=== PATIENT | male | born 1945 ===

== ENCOUNTER 2018-10-25 19:15 | Inpatient (IN) | payer MEDICARE ==
--- NOTE | 2018-10-25 19:18 | C.PDOC ---
History Of Present Illness Patient presents to the ER complaining of chest pain for the past couple of days. Patient is scheduled for angio to be done tomorrow at [place] but reports more chest pain this morning. He took three sublingual nitro with decreased of discomfort but it still persisted, he took another three sublingual nitro RADIATION THERAPIST and called 911. Patient received 324 aspirin enroute by medics. He has a Hx of two PR with four stents and pacemaker. Denies fever, chills, nausea, or vomiting. Time Seen by Provider: 10/25/18 19:17 History Per: Patient History/Exam Limitations: no limitations Onset/Duration Of Symptoms: Days, Worse Since (This morning) Current Symptoms Are (Timing): Still Present Context: Other Severity: Moderate Pain Scale Rating Of: 4 Quality: Dull, Tightness, Pressure Associated Symptoms: denies: Nausea, Dyspnea Modifying Factors: None Exacerbating Factors: None Alleviating Factors: None Nitro Therapy Administered: 3 (x2), Per Own Supply, Partial Relief Recent travel outside of the [place]: No Additional History Per: Patient Past Medical History Reviewed: Historical Data, Nursing Documentation, Vital Signs - Medical History Other PMH: MIx2 Surgical History: Coronary Stent (x4), Pacemaker Family History: States: No Known Family Hx Review Of Systems Constitutional: Negative for: Fever, Chills ENT: Negative for: Nose Discharge, Nose Congestion Cardiovascular: Positive for: Chest Pain. Negative for: Palpitations Respiratory: Negative for: Cough, Shortness of Breath Gastrointestinal: Negative for: Nausea, Vomiting Genitourinary: Negative for: Dysuria, Hematuria Musculoskeletal: Negative for: Back Pain Skin: Negative for: Rash Neurological: Positive for: Weakness (Chronic right arm). Negative for: Numbness Physical Exam - Physical Exam Appears: Non-toxic Skin: Warm, Dry Head: Normacephalic Eye(s): bilateral: Normal Inspection Oral Mucosa: Moist Neck: Trachea Midline, Supple Chest: Symmetrical, No Tenderness, Other (Pacemaker on right) Cardiovascular: Rhythm Regular Respiratory: No Rales, No Rhonchi, No Wheezing Gastrointestinal/Abdominal: Soft, No Tenderness Back: No CVA Tenderness Extremity: No Tenderness Extremity: Bilateral: Atraumatic, Normal Color And Temperature, Normal ROM Pulses: Left Dorsalis Pedis: Normal, Right Dorsalis Pedis: Normal Neurological/Psych: Oriented x3, Other (Chronic weakness on right arm) Gait: Unable To Assess ED Course And Treatment - Laboratory Results Result Diagrams: 10/25/18 19:41 10/25/18 19:41 ECG: Interpreted By Me, Viewed By Me ECG Rhythm: Sinus Rhythm (110), R BBB, Nonspecific Changes Pulse Ox Interpretation: Normal - Radiology CXR: Interpreted by Me, Viewed By Me CXR Interpretation: Yes: Infiltrates (? rll), Other (pacer right, mild vasc congestion, prosthetic shoulder). No: Fracture, Cardiomegaly Progress Note: EKG, blood work, CXR, and urinalysis ordered. Disposition Discussed With Dr.: Derrick Reynolds Comment: accepted the pt on h er service and took over the care at 8:47 PM Doctor Will See Patient In The: Hospital Counseled Patient/Family Regarding: Studies Performed, Diagnosis - Disposition Disposition: HOSPITALIZED Disposition Time: 19:18 Condition: FAIR - POA Present On Arrival: None - Clinical Impression Clinical Impression: Chest pain - Scribe Statement The provider has reviewed the documentation as recorded by the Scriblaila Carlin All medical record entries made by the Scribe were at my direction and personally dictated by me. I have reviewed the chart and agree that the record accurately reflects my personal performance of the history, physical exam, medical decision making, and the department course for this patient. I have also personally directed, reviewed, and agree with the discharge instructions and disposition. Decision To Admit - Pt Status Changed To: Hospital Disposition Of: Observation - . Bed Request Type: Telemetry Admitting Physician: Derrick Reynolds Patient Diagnosis: Chest pain
[2018-10-25 19:47] LABS: BASO # 0.1 K/uL (0.0-0.2); BASO % 0.7 % (0.0-2.0); EOS # 0.2 K/uL (0.0-0.7); EOS % 1.9 % (0.0-4.0); HEMOGLOBIN 12.8 g/dL (12.0-18.0); LYMPH # 2.4 K/uL (1.0-4.3); MEAN CELL VOLUME 69.1 fL (80.0-94.0); MEAN CORPUSCULAR HEMOGLOBIN 22.3 pg (27.0-31.0); MEAN CORPUSCULAR HGB CONC 32.3 g/dL (33.0-37.0); MEAN PLATELET VOLUME 7.9 fL (7.2-11.7); MONO # 0.9 K/uL (0.0-0.8); MONO % 7.5 % (0.0-10.0); NEUT # 8.5 K/uL (1.8-7.0); NEUT % 69.9 % (50.0-75.0); NRBC % 0.1 % (0.0-2.0); RBC 5.75 Mil/uL (4.40-5.90); WHITE BLOOD COUNT 12.1 K/uL (4.8-10.8)
[2018-10-25 19:54] LABS: INR 1.2; PROTHROMBIN TIME 12.8 SECONDS (9.7-12.2)
[2018-10-25 20:01] LABS: ALB/GLOB RATIO 1.4 (1.0-2.1); ALBUMIN 4.3 g/dL (3.5-5.0); ALT/SGPT 24 U/L (21-72); AST/SGOT 30 U/L (17-59); BLOOD UREA NITROGEN 19 mg/dL (9-20); CALCIUM 9.4 mg/dl (8.6-10.4); GFR NON-AFRICAN AMERICAN > 60; LIPASE 123 U/L (23-300)
[2018-10-25 20:12] LABS: B-TYPE NATRIURETIC PEPTIDE 93.7 pg/mL (0-900)
[2018-10-25] MEDS ORDERED: Heparin25000 units/250ml 1/2NS 25,000 UNITS/250 ML BAG IV ONE ×2 (21:30→21:57)
[2018-10-25] MEDS ORDERED: Nitroglycerin 50mg in D5W 50 MG/250 ML BOTTLE IV ONE (21:31)
[2018-10-25] MEDS: Sodium Chloride 0.9% 1,000 ML IV SCH (22:26)
--- NOTE | 2018-10-25 22:32 | CP.PCM.CON ---
History of Present Illness - History of Present Illness History of Present Illness: 72 y/o male with pmx of cad, previously worked up multiple for CAD, patient prensents to [facility] (formerly [facility]) with chest pain, worsen by exerction. denies any radiation, denies any dizziness Patient had multiple previous outpatient wrok up for chest pain, including echoad, cardiac cateh at [facility] Pmx: CAD, allergies Psurg hx: deneis CHL smokes cigaretts 0.5 PPD Review of Systems - Review of Systems All systems: reviewed and no additional remarkable complaints except - Constitutional Constitutional: As Per HPI Past Patient History - Tetanus Immunizations Tetanus Immunization: Unknown - Past Social History Smoking Status: Current Some Days Smoker - CARDIAC Hx Pacemaker: Yes - PULMONARY Hx Respiratory Disorders: No - NEUROLOGICAL Hx Neurological Disorder: No - PSYCHIATRIC Hx Substance Use: No - SURGICAL HISTORY Hx Coronary Stent: Yes (x4) - ANESTHESIA Hx Anesthesia: Yes Hx Anesthesia Reactions: No Hx Malignant Hyperthermia: No Meds Allergies/Adverse Reactions: Allergies Allergy/AdvReac Type Severity Reaction Status Date / Time cat dander Allergy SHORTNESS Verified 10/25/18 19:30 OF BREATH nuts Allergy SHORTNESS Uncoded 10/25/18 19:30 OF BREATH seeds Allergy SHORTNESS Uncoded 10/25/18 19:30 OF BREATH - Medications Medications: Current Medications Acetylcysteine (Acetylcysteine 20%) 6 ml PO Q12H [facility] Stop: 10/27/18 10:31 Famotidine (Pepcid) 20 mg IVP DAILY [facility] Heparin Sodium/Sodium Chloride (Heparin 23496 Units/250ml 1/2 Normal Saline) 25,000 units in 250 mls @ 10 mls/hr IV .Q24H [facility] Stop: 10/26/18 21:29 Last Admin: 10/25/18 21:57 Dose: 10 mls/hr Sodium Chloride (Sodium Chloride 0.9%) 1,000 mls @ 75 mls/hr IV .[id number] [facility] Last Admin: 10/25/18 22:26 Dose: 75 mls/hr Potassium Chloride (Potassium Chloride 10 Meq/100 Ml) 10 meq in 100 mls @ 100 mls/hr IVPB Q1H [facility] Stop: 10/26/18 01:29 Rosuvastatin Calcium (Crestor) 20 mg PO HS [facility] Last Admin: 10/25/18 21:09 Dose: 20 mg Physical Exam - Head Exam Head Exam: ATRAUMATIC, NORMAL INSPECTION, NORMOCEPHALIC - Eye Exam Eye Exam: Normal appearance Pupil Exam: PERRL - ENT Exam ENT Exam: Mucous Membranes Dry, Mucous Membranes Moist, Normal Oropharynx - Neck Exam Neck exam: Positive for: Lymphadenopathy, Normal Inspection - Respiratory Exam Respiratory Exam: NORMAL BREATHING PATTERN. absent: Accessory Muscle Use, Chest Wall Tenderness, Clear to Auscultation Bilateral - GI/Abdominal Exam GI & Abdominal Exam: Normal Bowel Sounds, Soft - Expanded Upper Extremities Exam Right Forearm Wrist exam: tenderness - Back Exam Back exam: NORMAL INSPECTION Results - Vital Signs Recent Vital Signs: Last Vital Signs Temp 98 F 10/25/18 20:20 Pulse 94 H 10/25/18 21:55 Resp 19 10/25/18 21:55 BP 96/68 L 10/25/18 21:55 Pulse Ox 100 10/25/18 21:55 - Labs Result Diagrams: 10/26/18 05:00 10/26/18 05:00 Labs: Laboratory Results - last 24 hr 10/25/18 10/25/18 10/25/18 19:41 19:41 19:41 WBC 12.1 H RBC 5.75 Hgb 12.8 Hct 39.8 MCV 69.1 L MCH 22.3 L MCHC 32.3 L RDW 16.0 H Plt Count 396 MPV 7.9 Neut % (Auto) 69.9 Lymph % (Auto) 20.0 [place] % (Auto) 7.5 Eos % (Auto) 1.9 Baso % (Auto) 0.7 Neut # (Auto) 8.5 H Lymph # (Auto) 2.4 [place] # (Auto) 0.9 H Eos # (Auto) 0.2 Baso # (Auto) 0.1 PT 12.8 H INR 1.2 APTT 35.0 H Sodium 143 Potassium 3.5 L Chloride 103 Carbon Dioxide 25 Anion Gap 17 BUN 19 Creatinine 1.0 Est GFR ( Amer) > 60 Est GFR (Non-Af Amer) > 60 Random Glucose 120 H Calcium 9.4 Total Bilirubin 0.9 AST 30 ALT 24 Alkaline Phosphatase 73 Troponin I < 0.0120 NT-Pro-B Natriuret Pep 93.7 Total Protein 7.5 Albumin 4.3 Globulin 3.2 Albumin/Globulin Ratio 1.4 Lipase 123 Assessment & Plan - Assessment and Plan (Free Text) Assessment: r/p ACS: Start DAPT, + IV heparin, cehck p2y12 levels -keep NPO except medso -oral mucomyst -cardiologyu eval for cath in AM Patient remains hemodynamially stable -please see order set for more derails -possible drug seeking: check serum and urine send out drug test -Dr. Jarrell consulted for cards - Date & Time Date: 10/26/18 Time: 12:00
[2018-10-26] MEDS: Acetylcysteine 20% Inhal Soln (4ml) PO SCH ×3 (00:14→21:33)
[2018-10-26] MEDS ORDERED: Sodium Chloride 0.9% 1,000 ML IV ONE (02:32)
[2018-10-26 05:03] LABS: BASO # 0.1 K/uL (0.0-0.2); BASO % 0.7 % (0.0-2.0); EOS # 0.3 K/uL (0.0-0.7); EOS % 3.6 % (0.0-4.0); HEMOGLOBIN 11.2 g/dL (12.0-18.0); LYMPH # 2.2 K/uL (1.0-4.3); LYMPH % 27.7 % (20.0-40.0); MEAN CELL VOLUME 69.9 fL (80.0-94.0); MEAN CORPUSCULAR HEMOGLOBIN 22.4 pg (27.0-31.0); MEAN CORPUSCULAR HGB CONC 32.1 g/dL (33.0-37.0); MEAN PLATELET VOLUME 7.8 fL (7.2-11.7); MONO # 0.7 K/uL (0.0-0.8); MONO % 8.8 % (0.0-10.0); NEUT # 4.6 K/uL (1.8-7.0); NEUT % 59.2 % (50.0-75.0); RED CELL DISTRIBUTION WIDTH 15.8 % (11.5-14.5); WHITE BLOOD COUNT 7.8 K/uL (4.8-10.8)
[2018-10-26 05:38] LABS: ALB/GLOB RATIO 1.4 (1.0-2.1); ALBUMIN 3.3 g/dL (3.5-5.0); ALT/SGPT 28 U/L (21-72); AST/SGOT 30 U/L (17-59); BLOOD UREA NITROGEN 21 mg/dL (9-20); CALCIUM 8.3 mg/dl (8.6-10.4); GFR NON-AFRICAN AMERICAN > 60
[2018-10-26 07:26] LABS: URINE BILIRUBIN NEGATIVE (NEGATIVE); URINE BLOOD NEGATIVE (NEGATIVE); URINE CLARITY Clear (Clear); URINE COLOR Amber (YELLOW); URINE GLUCOSE (UA) NORMAL (Normal); URINE LEUKOCYTE ESTERASE TRACE Leu/uL (Negative); URINE PROTEIN NEGATIVE (NEGATIVE)
[2018-10-26] MEDS ORDERED: Iodixanol 320 MG/ML 100 ML BOTTLE IV ONE (10:31)
[2018-10-26] MEDS ORDERED: Lidocaine 2% MPF (5 ml) Inj ONE (10:31)
[2018-10-26] MEDS ORDERED: Midazolam 2 MG/2 ML VIAL ONE (10:41)
--- NOTE | 2018-10-26 10:47 | CP.PCM.PN ---
Subjective - Date & Time of Evaluation Date of Evaluation: 10/26/18 Time of Evaluation: 10:46 - Subjective Subjective: H&P dictated #[id number] Objective - Vital Signs/Intake and Output Vital Signs (last 24 hours): Temp Pulse Resp BP Pulse Ox 97.8 F 70 19 110/71 97 10/26/18 08:00 10/26/18 07:00 10/26/18 07:00 10/26/18 07:00 10/26/18 07:00 Intake and Output: 10/26/18 10/26/18 06:59 18:59 Intake Total 1970 320 Output Total 450 575 Balance 1520 -255 - Medications Medications: Current Medications Acetylcysteine (Acetylcysteine 20%) 6 ml PO Q12H [facility] Stop: 10/27/18 10:31 Last Admin: 10/26/18 09:33 Dose: 6 ml Aspirin (Aspirin Chewable) 81 mg PO DAILY [facility] Last Admin: 10/26/18 09:11 Dose: 81 mg Famotidine (Pepcid) 20 mg IVP DAILY [facility] Last Admin: 10/26/18 09:11 Dose: 20 mg Heparin Sodium/Sodium Chloride (Heparin 86674 Units/250ml 1/2 Normal Saline) 25,000 units in 250 mls @ 10 mls/hr IV .Q24H [facility] Stop: 10/26/18 21:29 Last Admin: 10/25/18 21:57 Dose: 10 mls/hr Sodium Chloride (Sodium Chloride 0.9%) 1,000 mls @ 75 mls/hr IV .[id number] [facility] Last Admin: 10/25/18 22:26 Dose: 75 mls/hr Morphine Sulfate (Morphine) 2 mg IVP Q6H PRN PRN Reason: Pain, severe (8-10) Last Admin: 10/25/18 23:44 Dose: 2 mg Rosuvastatin Calcium (Crestor) 20 mg PO HS [facility] Last Admin: 10/25/18 21:09 Dose: 20 mg Ticagrelor (Brilinta) 90 mg PO BID [facility] Last Admin: 10/26/18 09:11 Dose: 90 mg - Labs Labs: 10/26/18 05:00 10/26/18 05:00 PT 12.8 SECONDS (9.7-12.2) H 10/25/18 19:41 INR 1.2 10/25/18 19:41 APTT 73.0 SECONDS (21-34) H D 10/26/18 05:00
[2018-10-26] MEDS ORDERED: Iodixanol 320 MG/ML 200 ML BOTTLE IV ONE (10:49)
--- NOTE | 2018-10-26 11:05 | RAD ---
Date of service: 10/25/2018 PROCEDURE: CHEST RADIOGRAPH, 1 VIEW HISTORY: Chest pain COMPARISON: None available. FINDINGS: LUNGS: The lungs are well inflated and clear. PLEURA: No pneumothorax or pleural effusion. CARDIOVASCULAR: The heart is normal in size. There is a right-sided dual lead permanent pacing device. No aortic atherosclerotic calcifications present. OSSEOUS STRUCTURES: Within normal limits for the patient's age. VISUALIZED UPPER ABDOMEN: Normal. OTHER FINDINGS: None. IMPRESSION: No active pulmonary disease.
[2018-10-26] MEDS ORDERED: Sodium Chloride 0.45% 1,000 ML IV SCH (12:00)
[2018-10-26] MEDS: Sodium Chloride 0.9% 1,000 ML IV SCH ×2 (12:05→22:44)
--- NOTE | 2018-10-27 00:12 | CP.PCM.PN ---
Subjective - Date & Time of Evaluation Date of Evaluation: 10/26/18 Time of Evaluation: 18:30 - Subjective Subjective: Patient s/p Cardiac Cath: 1. Non Obstructive Coronaries 2. EF 50% 3. Dilated Ascending Aorta Check CTA chest r/o Aortic aneurysm Objective - Vital Signs/Intake and Output Vital Signs (last 24 hours): Temp Pulse Resp BP Pulse Ox 98.6 F 83 21 105/57 L 95 10/27/18 00:00 10/27/18 00:00 10/27/18 00:00 10/26/18 23:54 10/27/18 00:00 Intake and Output: 10/26/18 10/27/18 18:59 06:59 Intake Total 1470 400 Output Total 1375 600 Balance 95 -200 - Medications Medications: Current Medications Acetylcysteine (Acetylcysteine 20%) 6 ml PO Q12H [facility] Stop: 10/27/18 10:31 Last Admin: 10/26/18 21:33 Dose: 6 ml Aspirin (Aspirin Chewable) 81 mg PO DAILY [facility] Last Admin: 10/26/18 09:11 Dose: 81 mg Clopidogrel Bisulfate (Plavix) 75 mg PO DAILY [facility] Famotidine (Pepcid) 20 mg IVP DAILY [facility] Last Admin: 10/26/18 09:11 Dose: 20 mg Heparin Sodium (Porcine) (Heparin) 5,000 units SC Q8 [facility] Last Admin: 10/26/18 21:09 Dose: 5,000 units Sodium Chloride (Sodium Chloride 0.45%) 1,000 mls @ 50 mls/hr IV .Q20H [facility] Stop: 10/27/18 07:59 Last Admin: 10/26/18 12:07 Dose: 50 mls/hr Morphine Sulfate (Morphine) 2 mg IVP Q6H PRN PRN Reason: Pain, severe (8-10) Last Admin: 10/25/18 23:44 Dose: 2 mg Rosuvastatin Calcium (Crestor) 20 mg PO HS [facility] Last Admin: 10/26/18 21:09 Dose: 20 mg - Labs Labs: 10/26/18 05:00 10/26/18 05:00 PT 12.8 SECONDS (9.7-12.2) H 10/25/18 19:41 INR 1.2 10/25/18 19:41 APTT 73.0 SECONDS (21-34) H D 10/26/18 05:00
--- NOTE | 2018-10-27 02:28 | HP ---
CHIEF COMPLAINT: Worsening chest pain over the past two days, scheduled for angio at [facility] by her primary senior accounting clerk. HISTORY OF PRESENT ILLNESS: Mr. Zamora is a 72-year-old male with past medical history of coronary artery disease, status post four stents placement in [place], permanent pacemaker placement, diabetes mellitus, hypertension, hyperlipidemia, chronic pancreatitis who has been following up with as a primary care physician and senior accounting clerk, came into the emergency room. He came into [facility] yesterday for worsening chest pain. He claims chest pain was more on exertion, took three sublingual nitroglycerins day before yesterday with relief, and again he noticed to have similar type of chest pain, and he took sublingual nitroglycerin again which he got relief and then he called 911. When I examined, he denies any headache or dizziness. Denied any chest pain, shortness of breath, or wheezing. Denies any nausea, vomiting, abdominal pain, diarrhea, or constipation. Denies any other urinary complaints. All other systems reviewed and were found to be negative. PAST MEDICAL HISTORY: As described hypertension, hyperlipidemia, coronary artery disease, status post stent placement and permanent pacemaker placement, chronic pancreatitis. PAST SURGICAL HISTORY: Underwent permanent pacemaker placement and stent placement in right shoulder surgery. FAMILY HISTORY: Coronary artery disease. PERSONAL HISTORY: He is . Having one son. 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 Lives alone. SOCIAL HISTORY: He smokes two to three cigarettes per day. Denies any drug abuse. Denies any alcohol use. ALLERGIES: HE IS ALLERGIC TO CAT DANDER. HOME MEDICATIONS: Include isosorbide 30 mg daily, metoprolol 25 mg p.o. b.i.d., testosterone 200 mg injection weekly, Lipitor 40 mg p.o. at bedtime, nitroglycerin 0.4 mg as needed, Plavix 75 mg daily, amlodipine 5 mg p.o. at bedtime, ranolazine 500 mg p.o. b.i.d., Xanax 0.5 mg p.o. b.i.d. REVIEW OF SYSTEMS: As described in history of present illness. All other systems reviewed and were found to be negative. PHYSICAL EXAMINATION: GENERAL: Elderly male, lying in bed, in no acute distress. VITAL SIGNS: Blood pressure 107/72, pulse 85, respirations 19, temperature 98.4 degrees Fahrenheit, O2 sat is 97% on room air. HEENT: Pupils are equal, round, and reactive to light and accommodation. Extraocular muscles are intact. No icterus. No pallor. No oral thrush. No pharyngeal congestion. NECK: Supple. No JVD. LUNGS: Bilateral vesicular breath sounds. No wheezing. No rhonchi. CARDIOVASCULAR SYSTEM: S1 and S2 present, regular. ABDOMEN: Soft and nontender. Bowel sounds present. No guarding. No rigidity. No rebound tenderness noted. CENTRAL NERVOUS SYSTEM: Alert, awake, and oriented x3. Right upper extremity contractures are noted. EXTREMITIES: No edema. Palpable peripheral pulses. LABORATORY DATA: Labs done from the emergency room: WBC 12.1, hemoglobin 12.8, hematocrit 39.8, and platelets 396. PT 12.8, INR 1.2, PTT 35. Sodium 143, potassium 3.5, chloride 103, bicarb 25, BUN 19, creatinine 1, glucose 120, calcium 9.4. Troponin negative. Pro-BNP 93.7. LFTs within normal limits. Lipase 123. UA negative. EKG: Consistent with sinus tachycardia at 110 beats per minute, right bundle-branch block. Chest x-ray: No active pulmonary disease. ASSESSMENT: Elderly male with history of coronary artery disease, status post stent placement, permanent pacemaker placement, hypertension, hyperlipidemia, chronic pancreatitis, anxiety disorder. Admitted for intermittent chest pain and dyspnea on exertion. The patient is being admitted for further evaluation. 1. Chest pain in a patient with multiple risk factors, rule out acute coronary syndrome. 2. Hypertension. 3. Hyperlipidemia. 4. Status post permanent pacemaker placement. 5. Anxiety disorder. 6. Hypokalemia. PLAN: The patient is being admitted to ICU for further cardiac monitoring, started on heparin drip and nitroglycerin drip. Gave hydration. Brilinta 90 mg b.i.d. Continue with his home medications of Plavix 75 mg daily, aspirin 81 mg daily. Mucomyst was given. Pepcid for gastrointestinal prophylaxis. Cardiology consult with Dr. Jarrell. We will add further recommendation as his clinical course progresses. Derrick Reynolds MD [facility] # [id number]
[2018-10-27 05:55] LABS: BASO # 0.1 K/uL (0.0-0.2); BASO % 0.6 % (0.0-2.0); EOS # 0.3 K/uL (0.0-0.7); EOS % 2.9 % (0.0-4.0); HEMOGLOBIN 12.4 g/dL (12.0-18.0); LYMPH # 1.8 K/uL (1.0-4.3); MEAN CELL VOLUME 70.2 fL (80.0-94.0); MEAN CORPUSCULAR HEMOGLOBIN 22.4 pg (27.0-31.0); MEAN CORPUSCULAR HGB CONC 31.9 g/dL (33.0-37.0); MEAN PLATELET VOLUME 8.1 fL (7.2-11.7); MONO # 0.8 K/uL (0.0-0.8); NEUT # 6.9 K/uL (1.8-7.0); NEUT % 70.5 % (50.0-75.0); NRBC % 0.1 % (0.0-2.0); RBC 5.52 Mil/uL (4.40-5.90); RED CELL DISTRIBUTION WIDTH 16.5 % (11.5-14.5); WHITE BLOOD COUNT 9.8 K/uL (4.8-10.8)
[2018-10-27 06:20] LABS: ALB/GLOB RATIO 1.3 (1.0-2.1); ALBUMIN 3.5 g/dL (3.5-5.0); ALT/SGPT 22 U/L (21-72); AST/SGOT 26 U/L (17-59); BLOOD UREA NITROGEN 19 mg/dL (9-20); CALCIUM 8.7 mg/dl (8.6-10.4); GFR NON-AFRICAN AMERICAN > 60
[2018-10-27 07:54] VITALS: TEMP 97.7
[2018-10-27] MEDS ORDERED: Iodixanol 320 MG/ML 100 ML BOTTLE IV ONE (08:26)
[2018-10-27 09:16] VITALS: O2SAT 96
--- NOTE | 2018-10-27 10:12 | CT ---
Date of service: 10/27/2018 PROCEDURE: CTA Chest with contrast HISTORY: ascending aortic aneurysm COMPARISON: None available. TECHNIQUE: Contiguous axial images were obtained through the chest with intravenous contrast enhancement. Sagittal and coronal reconstructions were performed. IV contrast: 100 mL of Visipaque 320 intravenously. Radiation dose: Total exam DLP = 512.37 mGy-cm. This CT exam was performed using one or more of the following dose reduction techniques: Automated exposure control, adjustment of the mA and/or kV according to patient size, and/or use of iterative reconstruction technique. FINDINGS: LUNGS: No evidence of focal infiltrate or consolidation in the lungs. MEDIASTINUM: Mild to moderate aneurysmal dilatation of the ascending aorta and aortic root measures 4.6 centimeter in the largest transverse diameter at the level of the mid mediastinum/main pulmonary artery. The descending thoracic aorta is normal in caliber measures 3 centimeter in the transverse diameter. The aortic arch is also normal in caliber. The visualized portion of the proximal abdominal aorta is normal in caliber measures 2.7 centimeter in the transverse diameter. The main thoracic aorta branches are normal in caliber. The heart is normal in size. There is diffuse thickening of the left ventricle wall noted. Main pulmonary artery is normal in caliber. There are coronary artery calcification noted. There are pacemaker wires seen extending to the right heart. No evidence of significant lymphadenopathy in the chest. There is diffuse esophageal mucosal thickening noted. Foci of atherosclerotic calcification noted in the aorta.. PLEURA: No pleural fluid. No pneumothorax. BONES: No fracture. No destructive lesion. UPPER ABDOMEN: Grossly unremarkable. OTHER FINDINGS: None. 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 No evidence of aortic dissection. Thoracic aorta branches are patent and have normal caliber and shape. Mild atherosclerotic disease. No evidence of acute pulmonary disease. Diffuse esophageal mucosal thickening noted.
[2018-10-27] MEDS: Acetylcysteine 20% Inhal Soln (4ml) PO SCH (10:15)
--- NOTE | 2018-10-27 11:14 | CP.PCM.PN ---
Subjective - Date & Time of Evaluation Date of Evaluation: 10/27/18 Time of Evaluation: 11:13 - Subjective Subjective: Discharge summary dictated #[id number] Objective - Vital Signs/Intake and Output Vital Signs (last 24 hours): Temp Pulse Resp BP Pulse Ox 97.7 F 84 16 114/74 96 10/27/18 07:54 10/27/18 09:03 10/27/18 09:03 10/27/18 09:03 10/27/18 08:00 Intake and Output: 10/27/18 10/27/18 06:59 18:59 Intake Total 750 100 Output Total 1100 Balance -350 100 - Medications Medications: Current Medications Aspirin (Aspirin Chewable) 81 mg PO DAILY [facility] Last Admin: 10/26/18 09:11 Dose: 81 mg Clopidogrel Bisulfate (Plavix) 75 mg PO DAILY [facility] Famotidine (Pepcid) 20 mg IVP DAILY [facility] Last Admin: 10/26/18 09:11 Dose: 20 mg Heparin Sodium (Porcine) (Heparin) 5,000 units SC Q8 [facility] Last Admin: 10/27/18 06:26 Dose: 5,000 units Morphine Sulfate (Morphine) 2 mg IVP Q6H PRN PRN Reason: Pain, severe (8-10) Last Admin: 10/25/18 23:44 Dose: 2 mg Rosuvastatin Calcium (Crestor) 20 mg PO HS [facility] Last Admin: 10/26/18 21:09 Dose: 20 mg - Labs Labs: 10/27/18 05:47 10/27/18 05:47 PT 12.8 SECONDS (9.7-12.2) H 10/25/18 19:41 INR 1.2 10/25/18 19:41 APTT 73.0 SECONDS (21-34) H D 10/26/18 05:00
[2018-10-27 12:30] VITALS: BP 131/64; PULSE 86; RESP 14
--- NOTE | 2018-10-27 14:28 | CARD ---
APPROVED REPORT Date of service: 10/26/2018 EKG Measurement Heart [id number] <Conclusion> Normal sinus rhythm Right bundle branch block Inferior infarct, age undetermined Abnormal ECG
--- NOTE | 2018-10-28 12:27 | DS ---
DISCHARGE DIAGNOSES: Acute coronary syndrome ruled out, status post cardiac catheterization with nonobstructive coronaries, dilated ascending aorta, EF 50%. CT angiogram of the chest consistent with aneurysmal dilatation of the aortic root and ascending thoracic aorta measuring up to 4.6 cm without any aortic dissection, hypertension, hyperlipidemia, coronary artery disease, status post stent placement, chronic pancreatitis. HISTORY OF PRESENT ILLNESS: Mr. Zamora is a 72-year-old male with past medical history of coronary artery disease, status post stent placement, permanent pacemaker placement, hypertension, hyperlipidemia, chronic pancreatitis, admitted for worsening chest pain and dyspnea on exertion. In the ED, the patient was found to be having negative troponin, no acute EKG changes, and being admitted for further evaluation. Today, the patient is feeling much better. Denies any headache, dizziness. Denies any chest pain, shortness of breath, or wheezing. Denies any nausea, vomiting, abdominal pain, diarrhea, or constipation. Denies any urinary complaints. Denies any leg pains or leg cramps. Denies any other neurologic symptoms. All other systems reviewed and were found to be negative. PHYSICAL EXAMINATION: GENERAL: An elderly male, lying in bed, in no acute distress. VITAL SIGNS: Blood pressure 131/64, pulse 86, respirations 20, temperature 98.4 degrees Fahrenheit, O2 saturation is 100% on room air. HEENT: Pupils equal, round, reacting to light and accommodation. Extraocular muscles intact. No icterus, no pallor. No oral thrush, no pharyngeal congestion. NECK: Supple. No JVD. LUNGS: Bilateral vesicular breath sounds. No wheezing, no rhonchi. CARDIOVASCULAR SYSTEM: S1 and S2 present, regular. ABDOMEN: Soft, nontender. Bowel sounds present. No guarding, no rigidity, no rebound tenderness noted. CENTRAL NERVOUS SYSTEM: Alert, awake, oriented x3. Right upper extremity contractures. EXTREMITIES: No edema. Palpable peripheral pulses. LABORATORY DATA: Labs done from today; WBC 9.8, hemoglobin 12.4, hematocrit 38.8, platelets 365. Sodium 138, potassium 3.9, chloride 106, bicarb 23, BUN 19, creatinine 0.9, glucose 115, calcium 8.7, phosphorus 2.9, magnesium 1.9, total protein 6.1, albumin 3.5. Procalcitonin negative. UA negative. HOSPITAL COURSE: The patient was admitted to the hospital to ICU, started on heparin drip and nitro drip. The patient underwent cardiac catheterization, done by Dr. Jarrell. Coronaries were normal with EF of 50%, found to be having dilated aortic root. CT is consistent with dilated aortic root with 4.6 cm in size. The patient is otherwise feeling better and advised the patient to follow up with Cardiology and Cardiothoracic Surgery for further close monitoring of his aneurysmal dilatation of the aortic root. The patient is cleared by Cardiology for discharge. CONDITION UPON DISCHARGE: The patient is alert, awake, oriented x3, and hemodynamically stable at the time of discharge. DISCHARGE INSTRUCTIONS: Follow up with PMD. Follow up with Cardiology and follow up with Cardiothoracic Surgery. The patient was given a copy of the CT scan of the chest to be taken to his pill coater. Advised the patient to return to ED if any worsening of the symptoms. DIET: Heart-healthy, low-sodium diet. ACTIVITY: As tolerated. DISCHARGE MEDICATIONS: Amlodipine 5 mg p.o. at bedtime, Lipitor 40 mg at bedtime, Plavix 75 mg daily, Imdur 30 mg daily, Lopressor 25 mg p.o. b.i.d., Nitrostat as needed, Ranolazine 500 mg p.o. b.i.d., testosterone every weekly injections, Xanax as needed. Derrick Reynolds MD
--- NOTE | 2018-10-28 23:49 | CP.PCM.PN ---
Subjective - Date & Time of Evaluation Date of Evaluation: 10/27/18 Time of Evaluation: 08:25 - Subjective Subjective: 72 y/o male with pmx of cad, previously worked up multiple for CAD, patient prensents to [facility] with chest pain, worsen by exerction. denies any radiation, denies any dizziness Patient had multiple previous outpatient wrok up for chest pain, including echoad, cardiac cateh at [facility] Pmx: CAD, allergies Psurg hx: deneis CHL smokes cigaretts 0.5 PPD Review of Systems - Review of Systems All systems: reviewed and no additional remarkable complaints except - Constitutional Constitutional: As Per HPI Physical Exam - Head Exam Head Exam: ATRAUMATIC, NORMAL INSPECTION, NORMOCEPHALIC - Eye Exam Eye Exam: Normal appearance Pupil Exam: PERRL - ENT Exam ENT Exam: Mucous Membranes Dry, Mucous Membranes Moist, Normal Oropharynx - Neck Exam Neck exam: Positive for: Lymphadenopathy, Normal Inspection - Respiratory Exam Respiratory Exam: NORMAL BREATHING PATTERN. absent: Accessory Muscle Use, Chest Wall Tenderness, Clear to Auscultation Bilateral - GI/Abdominal Exam GI & Abdominal Exam: Normal Bowel Sounds, Soft - Expanded Upper Extremities Exam Right Forearm Wrist exam: tenderness - Back Exam Back exam: NORMAL INSPECTION Assessment & Plan - Assessment and Plan (Free Text) Assessment: Cardiac Cath: Non Obstructive CAD. 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
--- NOTE | 2018-10-29 13:27 | CARD ---
APPROVED REPORT Date of service: 10/26/2018 EXAM: Two-dimensional and M-mode echocardiogram with Doppler and color Doppler. Other Information Quality : GoodRhythm : INDICATION ASSESS LV FUNCTION 2D DIMENSIONS IVSd0.8 (0.7-1.1cm)LVDd5.0 (3.9-5.9cm) PWd1.0 (0.7-1.1cm)LA Gpwjoq66 (18-58mL) LVDs3.6 (2.5-4.0cm)FS (%) 28.8 % LVEF (%)55.2 (>50%)LVEF (Segovia's)52 % IVC0.00 cm M-Mode DIMENSIONS Left Atrium (MM)3.04 (2.5-4.0cm)IVSd1.02 (0.7-1.1cm) Aortic Root4.00 (2.2-3.7cm)LVDd6.13 (4.0-5.6cm) Aortic Cusp Exc.2.20 (1.5-2.0cm)PWd0.87 (0.7-1.1cm) FS (%) 27 %LVDs4.49 (2.0-3.8cm) TAPSE10.65 cmLVEF (%)50 (>50%) Aortic Valve AI P 1/2 Wyso500ke Mitral Valve MV E Gklqocwb35.4cm/sMV A Brovgdfi87.4cm/sE/A ratio0.3 DJQZ681.41 cm/s TDI Lateral E' Peak V7.00cm/sMedial E' Peak V3.58cm/sE/Lateral E'4.6 E/Medial E'9.1 <Conclusion> Left ventricle: thickness: normal; size: normal; overall ejection fraction: 50%: diastolic filling pressures: normal Mitral valve: annulus: normal: leaflets: normal: excursion: normal; no significant trans-mitral gradient: mild to moderate incompetence: left atrium: normal Aortic valve: leaflets: normal: excursion: normal; no significant trans-aortic gradient: mild incompetence: aortic root:mild dilatation Right sided Structures: Pulmonary valve: normal; no significant incompetence; Tricuspid valve: normal; no significant incompetence: Intra-cardiac hemodynamics: pulmonary systolic pressures: normal; central venous pressures: normal No pericardial effusion
--- NOTE | 2018-10-29 14:27 | CARD ---
APPROVED REPORT Date of service: 10/25/2018 EKG Measurement Heart [id number] CT [id number] <Conclusion> Sinus tachycardia Right bundle branch block Abnormal ECG
--- NOTE | 2018-11-01 01:49 | CARDCATH ---
PROCEDURE DATE: 10/26/2018 PROCEDURES: 1. Left heart catheterization. 2. Coronary angiogram. 3. Aortic root angiogram. REFERRING PHYSICIAN: Derrick Reynolds MD PERFORMING PHYSICIAN: Dillon Jarrell MD CLINICAL INDICATIONS: 1. Chest pain. 2. Hypertension. 3. Hyperlipidemia. 4. History of coronary artery disease and stent. DESCRIPTION OF PROCEDURE: After informed consent, the patient was prepped and draped in the usual sterile fashion. Lidocaine 2% was given in the right groin for local anesthesia. Using micropuncture technique, a 6-Czech sheath was introduced into right common femoral artery. A JL4 6-Czech diagnostic catheter was engaged into left main coronary artery. Contrast was injected and left coronary angiogram was done. Then, the catheter was exchanged to JR4 6-Czech diagnostic catheter. The catheter was inserted into the left ventricle. LVEDP measured. Contrast was injected and LV angiogram was done. The catheter was pulled back across the aortic valve. Gradient across the aortic valve was measured. Then, the same catheter was engaged into right coronary artery. Contrast was injected and right coronary angiogram was done. Then, pigtail catheter was inserted into the ascending aorta. Using power injector, ascending root aortic angiogram was performed. The patient tolerated the procedure well. Postprocedure, Mynx closure device was applied with excellent hemostasis. Radiological supervision and radiological interpretation of the coronary imaging was done. FINDINGS: 1. Left main coronary artery is patent. 2. LAD is patent. branches in the LAD are patent. Diagonal 2 branch has 50% proximal stenosis. 3. Left circumflex and obtuse marginal branches are patent. 4. Right coronary artery is dominant. Prior stent in the right coronary artery is patent. 5. LV ejection fraction is approximately 50%. Mild global hypokinesis. EDP is 30. No gradient across the aortic valve. IMPRESSION: 1. Patent coronary stent. 2. Diagonal 2 branch has a 50% proximal stenosis. 3. Mildly decreased left ventricular function with ejection fraction of 50%. 4. Aortic root angiogram has demonstrated dilated aortic root. PLAN: Recommend CT angio for accurate measurements. Dillon Jarrell MD [facility] # [id number]
== END 2018-10-27 12:20 | disposition home or self-care (01) | DRG 287 ==
LOC: C.ER 19:15 → OBSVTOIN 20:45 → C.6T 20:45 → C.9E 21:35 → C.9I 21:54
PROVIDERS: ADMIT Internal Medicine; ATTEND Internal Medicine
PROC: 4A023N7 Measurement of Cardiac Sampling and Pressure, Left Heart, Percutaneous Approach (ICD-10-PCS; principal; 2018-10-26)
PROC: B2151ZZ Fluoroscopy of Left Heart using Low Osmolar Contrast (ICD-10-PCS; 2018-10-26)
PROC: B2111ZZ Fluoroscopy of Multiple Coronary Arteries using Low Osmolar Contrast (ICD-10-PCS; 2018-10-26)
PROC: B3101ZZ Fluoroscopy of Thoracic Aorta using Low Osmolar Contrast (ICD-10-PCS; 2018-10-26)
DX: I25.10 Atherosclerotic heart disease of native coronary artery without angina pectoris (principal); I77.810 Thoracic aortic ectasia; I10 Essential (primary) hypertension; K86.1 Other chronic pancreatitis; E11.9 Type 2 diabetes mellitus without complications; E87.6 Hypokalemia; E78.5 Hyperlipidemia, unspecified; F41.9 Anxiety disorder, unspecified; F17.210 Nicotine dependence, cigarettes, uncomplicated; Z95.0 Presence of cardiac pacemaker; Z95.5 Presence of coronary angioplasty implant and graft; Z79.02 Long term (current) use of antithrombotics/antiplatelets